=== PATIENT | male | born 1940 | race Caucasian/White ===

== ENCOUNTER → 2023-12-30 11:28 | Outpatient (REF) | payer MEDICARE, OTHER, SELFPAY ==
[2023-12-30 15:49] LABS: Hemoglobin 11.5 g/dL (13.0-18.0)
[2023-12-30 16:03] LABS: Blood Urea Nitrogen 59 mg/dl (9-20); Calcium 9.2 mg/dl (8.4-10.2); Carbon Dioxide 27 mmol/L (22-30); Chloride 102 mmol/L (98-107); Glucose 117 mg/dl (70-99); HDL Cholesterol 42 mg/dl; Iron 72 ug/dl (49-181); LDL Cholesterol, Calculated 71 mg/dl; Phosphorus 4.7 mg/dl (2.5-4.5); Potassium 4.8 mmol/L (3.5-5.1); Sodium 137 mmol/L (135-145); Total Cholesterol 135 mg/dl (50-199); Triglyceride 111 mg/dl (10-149); Very Low Density Lipoprotein 22 mg/dl (0-30); eGFR 27.49
[2023-12-30 16:12] LABS: Percent Saturation 26 % (20-50); Total Iron Binding Capacity 267 ug/dl (261-462)
[2023-12-30 16:42] LABS: Protein/creatinine Ratio 1.8; Urine Protein 162 mg/dl
[2023-12-30 16:52] LABS: Ferritin 41.2 ng/ml (17.9-464.0)
[2023-12-30 17:10] LABS: Microalbumin, Random Urine > 57.0 mg/dl (0.6-1.7)
[2024-01-01 10:57] LABS: Intact PTH 77.9 pg/ml (13.6-85.8)
== END ==
LOC: HWLAB 11:28
PROVIDERS: ATTENDING PHYSICIAN Internal Medicine
DX: E11.9 Type 2 diabetes mellitus without complications (principal); E78.5 Hyperlipidemia, unspecified; N18.4 Chronic kidney disease, stage 4 (severe); D64.9 Anemia, unspecified; I10 Essential (primary) hypertension; R80.1 Persistent proteinuria, unspecified
CPT/HCPCS: 36415; 80048; 80061; 82043; 82570; 82728; 83036; 83540; 83550; 83970; 84100; 84156; 85018

== ENCOUNTER → 2024-02-08 09:42 | Outpatient (REF) | payer MEDICARE, OTHER, SELFPAY ==
[2024-02-08 13:07] LABS: Hemoglobin 10.7 g/dL (13.0-18.0)
[2024-02-08 14:18] LABS: Urine Protein 110 mg/dl
[2024-02-08 14:20] LABS: Blood Urea Nitrogen 48 mg/dl (9-20); Calcium 9.3 mg/dl (8.4-10.2); Carbon Dioxide 19 mmol/L (22-30); Chloride 108 mmol/L (98-107); Glucose 105 mg/dl (70-99); Iron 73 ug/dl (49-181); Phosphorus 4.8 mg/dl (2.5-4.5); Potassium 5.7 mmol/L (3.5-5.1); Sodium 136 mmol/L (135-145); eGFR 27.49
[2024-02-08 14:31] LABS: Percent Saturation 29 % (20-50); Total Iron Binding Capacity 249 ug/dl (261-462)
[2024-02-08 14:34] LABS: Ferritin 56.3 ng/ml (17.9-464.0)
[2024-02-09 11:05] LABS: Intact PTH 49.3 pg/ml (13.6-85.8)
== END ==
LOC: HWLAB 09:42
PROVIDERS: ATTENDING PHYSICIAN Specialist; FAMILY PHYSICIAN Internal Medicine
DX: E78.5 Hyperlipidemia, unspecified (principal); N18.4 Chronic kidney disease, stage 4 (severe); D64.9 Anemia, unspecified; I10 Essential (primary) hypertension; R80.1 Persistent proteinuria, unspecified
CPT/HCPCS: 36415; 80048; 82570; 82728; 83540; 83550; 83970; 84100; 84156; 85018

== ENCOUNTER → 2024-03-17 14:55 | Outpatient (REF) | payer MEDICARE, OTHER, SELFPAY ==
[2024-03-17 15:47] LABS: Blood Urea Nitrogen 53 mg/dl (9-20); Calcium 9.6 mg/dl (8.4-10.2); Carbon Dioxide 23 mmol/L (22-30); Chloride 105 mmol/L (98-107); Glucose 102 mg/dl (70-99); Potassium 4.8 mmol/L (3.5-5.1); Sodium 139 mmol/L (135-145); eGFR 28.99
== END ==
LOC: REG 14:55
PROVIDERS: ATTENDING PHYSICIAN Specialist; FAMILY PHYSICIAN Internal Medicine
DX: E78.5 Hyperlipidemia, unspecified (principal)
CPT/HCPCS: 36415; 80048

== ENCOUNTER → 2024-03-27 09:39 | Outpatient (REF) | payer MEDICARE, OTHER, SELFPAY | LOC: HWRAD 09:39 | PROVIDERS: ATTENDING PHYSICIAN Internal Medicine | DX: M25.552 Pain in left hip (principal); M70.62 Trochanteric bursitis, left hip | CPT/HCPCS: 72110; 73502 ==

== ENCOUNTER → 2024-05-08 07:54 | Outpatient (REF) | payer MEDICARE, OTHER, SELFPAY ==
[2024-05-08 09:39] LABS: Urine Albumin 1+ (Neg - Trace); Urine Bilirubin Negative (Negative); Urine Character Clear (Clear); Urine Color Yellow; Urine Glucose Negative (Negative); Urine Ketone Negative (Negative); Urine Leukocyte Trace (Negative); Urine Nitrite Negative (Negative); Urine Occult Blood Negative (Negative); Urine Specific Gravity 1.015 (<1.030); Urine Urobilinogen Negative (Neg - 1+)
[2024-05-08 09:53] LABS: % Basophils 0.5 % (0-2); % Eosinophils 2.4 % (0-6); % Immature Granulocytes 2.6 % (0-0.5); % Lymphocytes 21.9 % (20.5-51.1); % Monocytes 13.4 % (1.7-9.3); % Neutrophils 59.2 % (42.2-75.2); Absolute Basophils 0.1 10^3/uL (0-0.2); Absolute Eosinophils 0.2 10^3/uL (0-0.7); Absolute Immature Granulocytes 0.2 10^3/uL (0-0.05); Absolute Monocytes 1.2 10^3/uL (0.1-0.6); Absolute Neutrophils 5.5 10^3/uL (1.4-6.5); Hematocrit 32.4 % (39.0-52.0); Hemoglobin 10.8 g/dL (13.0-18.0); Mean Corp Hgb Conc. 33.3 g/dL (33.0-37.0); Mean Corpuscular Hgb 32.4 pg (27.0-31.0); Mean Corpuscular Volume 97.3 fL (80.0-94.0); Mean Platelet Volume 10.8 fL (7.4-10.4); Nucleated Red Blood Cells % 0 % (-); Platelet Count 144 10^3/uL (130-400); Red Blood Cell Count 3.33 10^6/uL (4.70-6.10); Red Cell Dist. Width 13.1 % (11.5-14.5); White Blood Cell Count 9.3 10^3/uL (4.8-10.8)
[2024-05-08 09:58] LABS: ALT (SGPT) 33 U/L (0-50); AST (SGOT) 32 U/L (17-59); Albumin 3.8 g/dl (3.5-5.0); Alkaline Phosphatase 71 U/L (38-126); Blood Urea Nitrogen 50 mg/dl (9-20); Calcium 9.4 mg/dl (8.4-10.2); Carbon Dioxide 23 mmol/L (22-30); Chloride 106 mmol/L (98-107); Glucose 137 mg/dl (70-99); HDL Cholesterol 39 mg/dl; LDL Cholesterol, Calculated 55 mg/dl; Potassium 5.1 mmol/L (3.5-5.1); Sodium 138 mmol/L (135-145); Total Bilirubin 0.4 mg/dl (0.2-1.3); Total Cholesterol 130 mg/dl (50-199); Total Protein 6.1 g/dl (6.3-8.2); Triglyceride 180 mg/dl (10-149); Very Low Density Lipoprotein 36 mg/dl (0-30); eGFR 26.12
[2024-05-08 10:47] LABS: Urine Red Blood Cell None Seen /HPF (0-2); Urine White Cell 0-2 /HPF (0-5)
[2024-05-10 13:47] LABS: Folate > 20.0 ng/ml (2.76-20); Vitamin B12 975 pg/ml (239-931)
== END ==
LOC: HWLAB 07:54
PROVIDERS: ATTENDING PHYSICIAN Internal Medicine; FAMILY PHYSICIAN Nurse Practitioner Family; OTHER PHYSICIAN Internal Medicine Cardiovascular Disease; REFERRING PHYSICIAN Specialist
DX: E11.9 Type 2 diabetes mellitus without complications (principal); E78.5 Hyperlipidemia, unspecified; U07.1 COVID-19; R35.0 Frequency of micturition; R26.89 Other abnormalities of gait and mobility
CPT/HCPCS: 36415; 80053; 80061; 81003; 81015; 82607; 82746; 83036; 85025; 87086

== ENCOUNTER → 2024-08-14 08:24 | Outpatient (REF) | payer MEDICARE, OTHER, SELFPAY ==
[2024-08-14 09:52] LABS: % Basophils 0.4 % (0-2); % Immature Granulocytes 0.3 % (0-0.5); % Lymphocytes 27.3 % (20.5-51.1); % Monocytes 11.4 % (1.7-9.3); % Neutrophils 56.6 % (42.2-75.2); Absolute Eosinophils 0.3 10^3/uL (0-0.7); Absolute Monocytes 0.8 10^3/uL (0.1-0.6); Absolute Neutrophils 4.1 10^3/uL (1.4-6.5); Hematocrit 31.5 % (39.0-52.0); Hemoglobin 10.9 g/dL (13.0-18.0); Mean Corp Hgb Conc. 34.6 g/dL (33.0-37.0); Mean Corpuscular Hgb 32.9 pg (27.0-31.0); Mean Corpuscular Volume 95.2 fL (80.0-94.0); Mean Platelet Volume 11.5 fL (7.4-10.4); Nucleated Red Blood Cells % 0 % (-); Platelet Count 130 10^3/uL (130-400); Red Blood Cell Count 3.31 10^6/uL (4.70-6.10); Red Cell Dist. Width 13.4 % (11.5-14.5); White Blood Cell Count 7.2 10^3/uL (4.8-10.8)
[2024-08-14 10:06] LABS: ALT (SGPT) 23 U/L (0-50); AST (SGOT) 30 U/L (17-59); Albumin 4.2 g/dl (3.5-5.0); Alkaline Phosphatase 93 U/L (38-126); Blood Urea Nitrogen 51 mg/dl (9-20); Calcium 9.3 mg/dl (8.4-10.2); Carbon Dioxide 21 mmol/L (22-30); Chloride 105 mmol/L (98-107); Glucose 134 mg/dl (70-99); HDL Cholesterol 36 mg/dl; LDL Cholesterol, Calculated 78 mg/dl; Potassium 5.3 mmol/L (3.5-5.1); Sodium 140 mmol/L (135-145); Total Bilirubin 0.5 mg/dl (0.2-1.3); Total Cholesterol 171 mg/dl (50-199); Total Protein 6.5 g/dl (6.3-8.2); Triglyceride 288 mg/dl (10-149); Very Low Density Lipoprotein 57 mg/dl (0-30); eGFR 23.73
[2024-08-14 10:24] LABS: Glycohemoglobin (HgbA1c) 5.8 % (4.0-5.6)
== END ==
LOC: HWLAB 08:24
PROVIDERS: ATTENDING PHYSICIAN Specialist; FAMILY PHYSICIAN Internal Medicine
DX: E78.5 Hyperlipidemia, unspecified (principal); E11.9 Type 2 diabetes mellitus without complications; D69.6 Thrombocytopenia, unspecified
CPT/HCPCS: 36415; 80053; 80061; 83036; 85025

== ENCOUNTER → 2024-08-23 09:06 | Outpatient (REF) | payer MEDICARE, OTHER, SELFPAY ==
[2024-08-23 13:31] LABS: TSH Reflex To Free T4 1.97 uIU/ml (0.47-4.68)
== END ==
LOC: HWLAB 09:06
PROVIDERS: ATTENDING PHYSICIAN Nurse Practitioner Family
DX: K59.00 Constipation, unspecified (principal)
CPT/HCPCS: 36415; 84443

== ENCOUNTER 2024-08-24 12:55 | Emergency (ER) | payer MEDICARE, OTHER, SELFPAY ==
--- NOTE | 2024-08-24 13:04 | ED.GENMED ---
ED Provider Triage
<JESSICA Amor - Last Filed: 08/24/24 13:19>
-
Patient seen by provider in Triage?: Seen in Triage
Attestation: A medical screening examination has been initiated by a qualified medical provider. Based on the assessment performed at this time, it has been determined that an emergent medical condition may exist and the patient has been informed
that further medical evaluation and possible additional diagnostic testing may be needed.
HPI:
83 yr old male presents with abdominal pain x3 wks . PT thought he was constipated but has since moved his bowels (last BM today ) and still has abdominal pain . Pt reports he feels discomfort in abdomen and chest. No shortness of breath. no
dysuria , no hematuria, no back pain . Pt denies any nausea /vomiting. Normal appetite.
GENERAL: Alert , in no apparent distress
EYE: No visual abnormalities.
NECK: Trachea midline
ENT: No visible abnormalities.
LUNGS: No acute respiratory distress
NEUROLOGICAL: Alert and oriented
SKIN: Skin intact. No visible changes.
MUSCULOSKELETAL: Moving extremities normally
PSYCH: Normal and appropriate interaction.
This is a medical evaluation conducted in person to initiate diagnostic evaluation and provide initial therapeutics. Please see further documentation by the treating clinician.
History of Present Illness
<JESSICA Amor - Last Filed: 08/24/24 13:19>
General
Chief Complaint: Chest Pain
Time Seen by Provider: 08/24/24 13:53
<Nava Garcia MD - Last Filed: 08/24/24 16:21>
General
Source: patient
Exam Limitations: none
Nursing documentation reviewed up to this point in time: agreed with
History of Present Illness
History of Present Illness:
The patient is a very pleasant 83-year-old man who comes in with complaints of 2 weeks of upper abdominal pain radiating to into his central and lower abdomen. Patient reports that it feels like a burning sensation that comes and goes throughout
the day. He is not able to correlate it with any specific things such as eating or exertion. Patient denies cough and shortness of breath. Patient reports that he thought it may be due to constipation but states that he had a very good bowel
movement yesterday and still had some discomfort earlier today. Currently patient denies all discomfort and feels well. He denies nausea and vomiting.
Past History
<JESSICA Amor - Last Filed: 08/24/24 13:19>
Past History
ED Past Medical History: CAD, HTN, Hypercholesterolemia, NIDDM and Other (Hiatel hernia, Speep apnea)
ED Past Surgical History: Cardiac (Stents X2) and Urological (Left nephrectomy)
Social History
Tobacco: Non-smoker
Alcohol: None
Drug: None
Personal:
Living: with family
Employment: Retired
Family History
Family History: Hypertension
Review of Systems
<Nava Garcia MD - Last Filed: 08/24/24 16:21>
Review of Systems
Allergies reviewed?: Yes
All Other Systems: ROS reviewed and negative except as documented in HPI and ROS
Constitutional: Reports no symptoms
EENT: Reports no symptoms
Respiratory: Reports no symptoms
ABD/GI: Reports abdominal pain and constipated
: Reports no symptoms
Musculoskeletal: Reports no symptoms
Skin: Reports no symptoms
Neurological: Reports no symptoms
Endocrine: Reports no symptoms
Hematologic/Lymphatic: Reports no symptoms
Psychiatric: Reports no symptoms
Phy Exam
<Nava Garcia MD - Last Filed: 08/24/24 16:21>
Physical Exam
Physical Exam:
Physical Exam
General: no apparent distress, not acutely ill. Very well-appearing, conversational and smiling
Neck: supple. no meningeal signs. normal psoterior pharynx
Heart: s1/s2 regular rate and rhythm,
Lungs: no acute respiratory distress. clear bilaterally
Abdomen: normal bowel sounds. not tender. no CVAT. Soft and nontender throughout. No pulsatile mass
Neuro: alert and oriented. no focal neurological deficits
Skin: no rash
Psychiatric: well kept. interactive and cooperative
Extremities: no edema. no calf tenderness. negative homans. good distal pulses
Scores
<Nava Garcia MD - Last Filed: 08/24/24 16:21>
Heart Score for Chest Pain Patients
STEMI patient?: Not applicable
Course
<JESSICA Amor - Last Filed: 08/24/24 13:19>
Orders/Labs/Results
Orders:
Orders
08/24/24 12:56
Electrocardiogram (*1) Urgent
Reason for Study: Chest Pain
EKG- Treatment ONCE
08/24/24 13:18
Complete Blood Count/With Diff Urgent
Comprehensive Metabolic Panel Urgent
Lipase Urgent
Troponin I Urgent
Urinalysis Reflex To Culture Urgent
Date Specimen was Collected: 08/24/24
Time Specimen was Collected: 13:09
Urine Microscopic Reflex Cult Urgent
08/24/24 14:23
CT Abd/pel Without Iv Or Oral Urgent
Comment:
Reason For Exam: epig and diffuse ab pain
Abnormal Lab Results
08/24/24
13:18
RBC 3.63 L 10^6/uL
(4.70-6.10)
Hgb 11.5 L g/dL
(13.0-18.0)
Hct 32.8 L %
(39.0-52.0)
MCH 31.7 H pg
(27.0-31.0)
MPV 11.2 H fL
(7.4-10.4)
Absolute Monos (auto) 0.8 H 10^3/uL
(0.1-0.6)
Lymphocytes % 16.1 L %
(20.5-51.1)
Monocytes % 10.6 H %
(1.7-9.3)
BUN 46 H mg/dl
(9-20)
Creatinine 2.5 H mg/dL
(0.7-1.3)
Glucose 201 H mg/dl
(70-99)
Urine Bacteria (Reflex) Few A
(Negative)
Urine Albumin (Reflex) 1+ A
(Neg - Trace)
08/24/24 13:18
08/24/24 13:18
Vital Signs
Initial and Last Documented VS:
Initial Vital Signs
BP
155/69
08/24/24 13:32
Last Documented Vital Signs
Temp Pulse Resp BP Pulse Ox
97.9 F 65 17 150/72 93
08/24/24 13:34 08/24/24 14:54 08/24/24 14:15 08/24/24 14:00 08/24/24 14:15
<Nava Garcia MD - Last Filed: 08/24/24 16:21>
Orders/Labs/Results
Orders:
Orders
08/24/24 12:56
Electrocardiogram (*1) Urgent
Reason for Study: Chest Pain
EKG- Treatment ONCE
08/24/24 13:18
Complete Blood Count/With Diff Urgent
Comprehensive Metabolic Panel Urgent
Lipase Urgent
Troponin I Urgent
Urinalysis Reflex To Culture Urgent
Date Specimen was Collected: 08/24/24
Time Specimen was Collected: 13:09
Urine Microscopic Reflex Cult Urgent
08/24/24 14:23
CT Abd/pel Without Iv Or Oral Urgent
Comment:
Reason For Exam: epig and diffuse ab pain
Abnormal Lab Results
08/24/24
13:18
RBC 3.63 L 10^6/uL
(4.70-6.10)
Hgb 11.5 L g/dL
(13.0-18.0)
Hct 32.8 L %
(39.0-52.0)
MCH 31.7 H pg
(27.0-31.0)
MPV 11.2 H fL
(7.4-10.4)
Absolute Monos (auto) 0.8 H 10^3/uL
(0.1-0.6)
Lymphocytes % 16.1 L %
(20.5-51.1)
Monocytes % 10.6 H %
(1.7-9.3)
BUN 46 H mg/dl
(9-20)
Creatinine 2.5 H mg/dL
(0.7-1.3)
Glucose 201 H mg/dl
(70-99)
Urine Bacteria (Reflex) Few A
(Negative)
Urine Albumin (Reflex) 1+ A
(Neg - Trace)
08/24/24 13:18
08/24/24 13:18
Vital Signs
Initial and Last Documented VS:
Initial Vital Signs
BP
155/69
08/24/24 13:32
Last Documented Vital Signs
Temp Pulse Resp BP Pulse Ox
97.9 F 65 17 150/72 93
08/24/24 13:34 08/24/24 14:54 08/24/24 14:15 08/24/24 14:00 08/24/24 14:15
<Nava Garcia MD - Last Filed: 08/24/24 16:21>
MDM/Problems Addressed
Differential Diagnosis Includes:
Acute diverticulitis, acute gastritis, small bowel obstruction, acute coronary syndrome, acute cholecystitis
MDM/Problems Addressed:
Patient presents with acute epigastric and diffuse abdominal pain
Chronic conditions affecting care: HTN
Acute Exacerbation and/or Progression of Chronic Illness: HTN
<Nava Garcia MD - Last Filed: 08/24/24 16:21>
*Radiology
Radiology exam reviewed: radiology read reviewed
*Pulse Oximetry
Patient hypoxic: no
*EKG
Interpreted by ED Provider?: Yes
Interpretation: abnormal
Comparison EKG: no changes
Rate: normal
Rhythm: sinus
[place]: left axis deviation
Interval: normal interval
QRS Pattern: normal QRS
Ischemia: no ischemia
*Tape Stringer Interpretation
Rate: normal
Interpretation: normal
Rhythm: sinus
*Critical Care Note
Total Time (30-74mins, 75-104mins- exclusive of procedures): Not Applicable
Data Reviewed
Review of Other/Old Records Reveals: Radiology Studies (CAT scan of abdomen and pelvis reviewed from 2019 which shows sign of diverticulosis)
Source: patient and spouse
<Nava Garcia MD - Last Filed: 08/24/24 16:21>
Update Note
Update Note:
Patient remains pain-free for hours in the emergency department. There is no sign of acute infection or surgical issue
ED Attending Note
<JESSICA Amor - Last Filed: 08/24/24 13:19>
-
Portions of this chart may have been created with voice recognition software.� Occasional wrong word or��sound alike� substitutions may have occurred due to the inherent limitations of voice recognition software.
Discharge Plan
Departure
Patient Disposition: Home (Routine Discharge)
Date of Disposition: 08/24/24
Time of Disposition: 16:13
Patient with high blood pressure during this ER visit?: Yes
Condition: Good
Covid-19: Not Applicable
Discharge Problem:
Acute upper abdominal pain
Instructions: Acid Reflux and GERD in Adults (DC), BLOOD PRESSURE
Prescriptions:
New
sucralfate [Carafate] 100 mg/mL suspension
1 g PO ACHS 7 Days Qty: 280 0RF
No Action
atenolol 25 MG tablet
25 mg PO DAILY
aspirin [Saida Chewable Aspirin] 81 MG tablet,chewable
81 mg PO DAILY
alfuzosin 10 MG tablet extended release 24 hr
10 mg PO DAILY
Glipizide
omeprazole magnesium [Prilosec OTC] 20 MG tablet,delayed release (DR/EC)
20 mg PO DAILY Qty: 20 0RF
prednisone 20 mg tablet
40 mg PO DAILY 5 Days Qty: 10 0RF
Referrals:
Mark Antoine CRNP [Family Provider] -
Activity Restrictions/Additional Instructions:
Follow-up with your primary care doctor within 1 week
Interventions
Interventions:
*Risk Screen - Suicide Last Done: 08/24/24 13:04
*General Assessment Last Done: 08/24/24 13:04
ED- Fall Risk Assessment Last Done: 08/24/24 13:57
*ED COVID-19 Vaccine History Last Done: 08/24/24 13:04
ED- Cardiac Assessment Last Done: 08/24/24 13:39
Discharge Date and Time
Print Language: JAPANESE
[2024-08-24 13:27] LABS: % Basophils 0.5 % (0-2); % Eosinophils 3.1 % (0-6); % Immature Granulocytes 0.4 % (0-0.5); % Lymphocytes 16.1 % (20.5-51.1); % Monocytes 10.6 % (1.7-9.3); % Neutrophils 69.3 % (42.2-75.2); Absolute Eosinophils 0.2 10^3/uL (0-0.7); Absolute Lymphocytes 1.2 10^3/uL (1.2-3.4); Absolute Monocytes 0.8 10^3/uL (0.1-0.6); Absolute Neutrophils 5.2 10^3/uL (1.4-6.5); Hematocrit 32.8 % (39.0-52.0); Hemoglobin 11.5 g/dL (13.0-18.0); Mean Corp Hgb Conc. 35.1 g/dL (33.0-37.0); Mean Corpuscular Hgb 31.7 pg (27.0-31.0); Mean Corpuscular Volume 90.4 fL (80.0-94.0); Mean Platelet Volume 11.2 fL (7.4-10.4); Nucleated Red Blood Cells % 0 % (-); Platelet Count 141 10^3/uL (130-400); Red Blood Cell Count 3.63 10^6/uL (4.70-6.10); Red Cell Dist. Width 13.4 % (11.5-14.5); White Blood Cell Count 7.5 10^3/uL (4.8-10.8)
[2024-08-24 13:28] LABS: Urine Albumin 1+ (Neg - Trace); Urine Bilirubin Negative (Negative); Urine Character Clear (Clear); Urine Color Straw; Urine Glucose Negative (Negative); Urine Ketone Negative (Negative); Urine Leukocyte Negative (Negative); Urine Nitrite Negative (Negative); Urine Occult Blood Negative (Negative); Urine Specific Gravity 1.015 (<1.030); Urine Urobilinogen Negative (Neg - 1+)
[2024-08-24 13:32] VITALS: BP 155/69
[2024-08-24 13:49] LABS: Urine Bacteria Few (Negative); Urine Red Blood Cell 0-2 /HPF (0-2); Urine Squamous Cell 0-2 /LPF (Few); Urine White Cell 0-2 /HPF (0-5)
[2024-08-24 13:53] LABS: ALT (SGPT) 24 U/L (0-50); AST (SGOT) 31 U/L (17-59); Albumin 4.5 g/dl (3.5-5.0); Alkaline Phosphatase 88 U/L (38-126); Blood Urea Nitrogen 46 mg/dl (9-20); Calcium 9.4 mg/dl (8.4-10.2); Carbon Dioxide 23 mmol/L (22-30); Chloride 103 mmol/L (98-107); Glucose 201 mg/dl (70-99); Lipase 183 U/L (23-300); Potassium 4.8 mmol/L (3.5-5.1); Sodium 138 mmol/L (135-145); Total Bilirubin 0.6 mg/dl (0.2-1.3); Total Protein 6.8 g/dl (6.3-8.2); Troponin I < 0.012 ng/ml; eGFR 24.87
--- NOTE | 2024-08-24 13:53 | ED.GENMED ---
History of Present Illness
General
Chief Complaint: Chest Pain
Source: patient and spouse
Exam Limitations: none
Time Seen by Provider: 08/24/24 13:53
Nursing documentation reviewed up to this point in time: agreed with
History of Present Illness
History of Present Illness:
The patient is an 83
Past History
Past History
ED Past Medical History: CAD, HTN, Hypercholesterolemia, NIDDM and Other (Hiatel hernia, Speep apnea)
ED Past Surgical History: Cardiac (Stents X2) and Urological (Left nephrectomy)
Social History
Tobacco: Non-smoker
Alcohol: None
Drug: None
Personal:
Living: with family
Employment: Retired
Family History
Family History: Hypertension
Course
Orders/Labs/Results
Orders:
Orders
08/24/24 12:56
Electrocardiogram (*1) Urgent
Reason for Study: Chest Pain
EKG- Treatment ONCE
08/24/24 13:18
Complete Blood Count/With Diff Urgent
Comprehensive Metabolic Panel Urgent
Lipase Urgent
Troponin I Urgent
Urinalysis Reflex To Culture Urgent
Date Specimen was Collected: 08/24/24
Time Specimen was Collected: 13:09
Urine Microscopic Reflex Cult Urgent
Abnormal Lab Results
08/24/24
13:18
RBC 3.63 L 10^6/uL
(4.70-6.10)
Hgb 11.5 L g/dL
(13.0-18.0)
Hct 32.8 L %
(39.0-52.0)
MCH 31.7 H pg
(27.0-31.0)
MPV 11.2 H fL
(7.4-10.4)
Absolute Monos (auto) 0.8 H 10^3/uL
(0.1-0.6)
Lymphocytes % 16.1 L %
(20.5-51.1)
Monocytes % 10.6 H %
(1.7-9.3)
BUN 46 H mg/dl
(9-20)
Creatinine 2.5 H mg/dL
(0.7-1.3)
Glucose 201 H mg/dl
(70-99)
Urine Bacteria (Reflex) Few A
(Negative)
Urine Albumin (Reflex) 1+ A
(Neg - Trace)
08/24/24 13:18
08/24/24 13:18
Vital Signs
Initial and Last Documented VS:
Initial Vital Signs
BP
155/69
08/24/24 13:32
Last Documented Vital Signs
Temp Pulse Resp BP Pulse Ox
97.9 F 64 17 150/72 93
08/24/24 13:34 08/24/24 14:15 08/24/24 14:15 08/24/24 14:00 08/24/24 14:15
*Pulse Oximetry
Patient hypoxic: no
*EKG
Interpreted by ED Provider?: Yes
Interpretation: abnormal
Comparison EKG: changes noted
Rate: normal
Rhythm: sinus
[place]: left axis deviation
Interval: normal interval
QRS Pattern: normal QRS
Ischemia: no ischemia
ED Attending Note
-
Portions of this chart may have been created with voice recognition software.� Occasional wrong word or��sound alike� substitutions may have occurred due to the inherent limitations of voice recognition software.
Discharge Plan
Departure
Prescriptions:
No Action
atenolol 25 MG tablet
25 mg PO DAILY
aspirin [Saida Chewable Aspirin] 81 MG tablet,chewable
81 mg PO DAILY
alfuzosin 10 MG tablet extended release 24 hr
10 mg PO DAILY
Glipizide
omeprazole magnesium [Prilosec OTC] 20 MG tablet,delayed release (DR/EC)
20 mg PO DAILY Qty: 20 0RF
prednisone 20 mg tablet
40 mg PO DAILY 5 Days Qty: 10 0RF
Referrals:
Mark Antoine CRNP [Family Provider] -
Interventions
Interventions:
*Risk Screen - Suicide Last Done: 08/24/24 13:04
*General Assessment Last Done: 08/24/24 13:04
ED- Fall Risk Assessment Last Done: 08/24/24 13:57
*ED COVID-19 Vaccine History Last Done: 08/24/24 13:04
ED- Cardiac Assessment Last Done: 08/24/24 13:39
Discharge Date and Time
Print Language: CHILEAN
[2024-08-24 14:00] VITALS: BP 150/72
[2024-08-24 16:23] VITALS: BP 155/72
== END 2024-08-24 16:39 | disposition home or self-care (01) ==
LOC: EMR 12:55
PROVIDERS: Nurse Practitioner; EMERGENCY PHYSICIAN Emergency Medicine; FAMILY PHYSICIAN Nurse Practitioner Family
DX: R10.10 Upper abdominal pain, unspecified (principal); I25.10 Atherosclerotic heart disease of native coronary artery without angina pectoris; I10 Essential (primary) hypertension; E78.00 Pure hypercholesterolemia, unspecified; E11.9 Type 2 diabetes mellitus without complications; Z82.49 Family history of ischemic heart disease and other diseases of the circulatory system; Z90.5 Acquired absence of kidney; Z95.5 Presence of coronary angioplasty implant and graft
CPT/HCPCS: 99284; 74176; 80053; 81003; 81015; 83690; 84484; 85025; 93005

== ENCOUNTER → 2024-09-20 12:41 | Outpatient (REF) | payer MEDICARE, OTHER, SELFPAY ==
[2024-09-20 16:08] LABS: Blood Urea Nitrogen 65 mg/dl (9-20); Calcium 9.2 mg/dl (8.4-10.2); Carbon Dioxide 23 mmol/L (22-30); Chloride 105 mmol/L (98-107); Glucose 123 mg/dl (70-99); Phosphorus 4.5 mg/dl (2.5-4.5); Potassium 4.9 mmol/L (3.5-5.1); Sodium 140 mmol/L (135-145); eGFR 23.73
== END ==
LOC: HWLAB 12:41
PROVIDERS: ATTENDING PHYSICIAN Specialist; FAMILY PHYSICIAN Internal Medicine
DX: N18.4 Chronic kidney disease, stage 4 (severe) (principal)
CPT/HCPCS: 36415; 80048; 84100

== ENCOUNTER → 2024-11-10 12:10 | Outpatient (REF) | payer MEDICARE, OTHER, SELFPAY ==
[2024-11-10 17:09] LABS: Blood Urea Nitrogen 50 mg/dl (9-20); Calcium 9.3 mg/dl (8.4-10.2); Carbon Dioxide 22 mmol/L (22-30); Chloride 105 mmol/L (98-107); Glucose 125 mg/dl (70-99); Phosphorus 4.3 mg/dl (2.5-4.5); Potassium 5.2 mmol/L (3.5-5.1); Sodium 138 mmol/L (135-145); eGFR 26.12
== END ==
LOC: HWLAB 12:10
PROVIDERS: ATTENDING PHYSICIAN Specialist; FAMILY PHYSICIAN Internal Medicine
DX: N18.4 Chronic kidney disease, stage 4 (severe) (principal)
CPT/HCPCS: 36415; 80048; 84100

== ENCOUNTER → 2024-11-30 11:35 | Outpatient (REF) | payer MEDICARE, OTHER, SELFPAY | LOC: HWRAD 11:35 | PROVIDERS: ATTENDING PHYSICIAN Internal Medicine | DX: S80.11XA Contusion of right lower leg, initial encounter (principal) | CPT/HCPCS: 73590 ==

== ENCOUNTER → 2024-12-21 09:43 | Outpatient (REF) | payer MEDICARE, OTHER, SELFPAY ==
[2024-12-21 12:57] LABS: % Basophils 0.5 % (0-2); % Eosinophils 2.9 % (0-6); % Immature Granulocytes 0.9 % (0-0.5); % Lymphocytes 16.9 % (20.5-51.1); % Monocytes 9.4 % (1.7-9.3); % Neutrophils 69.4 % (42.2-75.2); Absolute Basophils 0.1 10^3/uL (0-0.2); Absolute Eosinophils 0.3 10^3/uL (0-0.7); Absolute Immature Granulocytes 0.1 10^3/uL (0-0.05); Absolute Lymphocytes 1.9 10^3/uL (1.2-3.4); Absolute Monocytes 1.1 10^3/uL (0.1-0.6); Hemoglobin 11.5 g/dL (13.0-18.0); Mean Corp Hgb Conc. 32.9 g/dL (33.0-37.0); Mean Corpuscular Hgb 31.3 pg (27.0-31.0); Mean Corpuscular Volume 95.4 fL (80.0-94.0); Mean Platelet Volume 11.9 fL (7.4-10.4); Nucleated Red Blood Cells % 0 % (-); Platelet Count 157 10^3/uL (130-400); Red Blood Cell Count 3.67 10^6/uL (4.70-6.10); Red Cell Dist. Width 13.8 % (11.5-14.5); White Blood Cell Count 11.5 10^3/uL (4.8-10.8)
[2024-12-21 13:19] LABS: ALT (SGPT) 22 U/L (0-50); AST (SGOT) 25 U/L (17-59); Albumin 4.7 g/dl (3.5-5.0); Alkaline Phosphatase 83 U/L (38-126); Blood Urea Nitrogen 58 mg/dl (9-20); Calcium 9.5 mg/dl (8.4-10.2); Carbon Dioxide 20 mmol/L (22-30); Chloride 107 mmol/L (98-107); Glucose 131 mg/dl (70-99); HDL Cholesterol 40 mg/dl; Iron 73 ug/dl (49-181); LDL Cholesterol, Calculated 72 mg/dl; Phosphorus 4.8 mg/dl (2.5-4.5); Potassium 5.6 mmol/L (3.5-5.1); Sodium 139 mmol/L (135-145); Total Bilirubin 0.7 mg/dl (0.2-1.3); Total Cholesterol 159 mg/dl (50-199); Total Protein 7.1 g/dl (6.3-8.2); Triglyceride 235 mg/dl (10-149); Very Low Density Lipoprotein 47 mg/dl (0-30); eGFR 20.68
[2024-12-21 13:25] LABS: Protein/creatinine Ratio 1.9; Urine Protein 185 mg/dl
[2024-12-21 13:30] LABS: Percent Saturation 28 % (20-50); Total Iron Binding Capacity 258 ug/dl (261-462)
[2024-12-21 13:40] LABS: Ferritin 58.1 ng/ml (17.9-464.0)
[2024-12-21 17:24] LABS: Microalbumin, Random Urine > 57.0 mg/dl (0.6-1.7)
[2024-12-23 09:43] LABS: Intact PTH 41.2 pg/ml (13.6-85.8)
== END ==
LOC: HWLAB 09:43
PROVIDERS: ATTENDING PHYSICIAN Specialist; FAMILY PHYSICIAN Internal Medicine
DX: E11.9 Type 2 diabetes mellitus without complications (principal); D69.6 Thrombocytopenia, unspecified; D63.8 Anemia in other chronic diseases classified elsewhere; E78.5 Hyperlipidemia, unspecified; N18.4 Chronic kidney disease, stage 4 (severe); D64.9 Anemia, unspecified; I10 Essential (primary) hypertension
CPT/HCPCS: 36415; 80053; 80061; 82043; 82570; 82728; 83036; 83540; 83550; 83970; 84100; 84156; 85025

== ENCOUNTER → 2024-12-22 11:05 | Outpatient (REF) | payer MEDICARE, OTHER, SELFPAY | LOC: HWRAD 11:05 | PROVIDERS: ATTENDING PHYSICIAN Internal Medicine | DX: R93.89 Abnormal findings on diagnostic imaging of other specified body structures (principal) | CPT/HCPCS: 73590 ==

== ENCOUNTER → 2025-01-26 10:59 | Outpatient (REF) | payer MEDICARE, OTHER, SELFPAY ==
[2025-01-26 15:16] LABS: Blood Urea Nitrogen 58 mg/dl (9-20); Calcium 9.4 mg/dl (8.4-10.2); Carbon Dioxide 22 mmol/L (22-30); Chloride 103 mmol/L (98-107); Glucose 105 mg/dl (70-99); Potassium 5.3 mmol/L (3.5-5.1); Sodium 136 mmol/L (135-145); eGFR 27.32
== END ==
LOC: HWLAB 10:59
PROVIDERS: ATTENDING PHYSICIAN Specialist; FAMILY PHYSICIAN Internal Medicine
DX: N18.4 Chronic kidney disease, stage 4 (severe) (principal)
CPT/HCPCS: 36415; 80048

== ENCOUNTER → 2025-03-07 08:11 | Outpatient (REF) | payer MEDICARE, OTHER, SELFPAY ==
[2025-03-07 10:38] LABS: Blood Urea Nitrogen 63 mg/dl (9-20); Calcium 8.9 mg/dl (8.4-10.2); Carbon Dioxide 22 mmol/L (22-30); Chloride 105 mmol/L (98-107); Glucose 117 mg/dl (70-99); Potassium 4.7 mmol/L (3.5-5.1); Sodium 140 mmol/L (135-145); Uric Acid 4.9 mg/dl (3.5-8.5); eGFR 21.57
== END ==
LOC: HWLAB 08:11
PROVIDERS: ATTENDING PHYSICIAN Specialist; FAMILY PHYSICIAN Internal Medicine
DX: N18.4 Chronic kidney disease, stage 4 (severe) (principal); E78.5 Hyperlipidemia, unspecified; I10 Essential (primary) hypertension; M25.572 Pain in left ankle and joints of left foot
CPT/HCPCS: 36415; 80048; 84550

== ENCOUNTER 2025-03-14 20:45 | Emergency (ER) | payer MEDICARE, OTHER, SELFPAY ==
[2025-03-14 20:46] VITALS: BP 161/74
--- NOTE | 2025-03-14 22:17 | ED.SKININJ ---
HPI-Injury
General
Chief Complaint: Skin Problem
Source: patient
Exam Limitations: none
Time Seen by Provider: 03/14/25 21:47
History of Present Illness-Injury
Is this injury a work related problem?: No
Is pt an associate of [facility]/[place]?: No
Initial Injury comments:
Patient to ED for bleeding from right forearm wound. He states he cut his arm on a ladder on Wednesday. Sustained a superficial skin tear to right ant, forearm. He states wound continues to ooze. Brought to ED by spouse for eval.
Past History
Past History
ED Past Medical History: CAD, HTN, Hypercholesterolemia, NIDDM and Other (Hiatel hernia, Speep apnea)
ED Past Surgical History: Cardiac (Stents X2) and Urological (Left nephrectomy)
Social History
Tobacco: Non-smoker
Alcohol: None
Drug: None
Personal:
Living: with family
Employment: Retired
Family History
Family History: Hypertension
Review of Systems
Review of Systems
Allergies reviewed?: Yes
All Other Systems: ROS reviewed and negative except as documented in HPI and ROS
Constitutional: Reports no symptoms
Musculoskeletal: Reports no symptoms
Skin: Reports other (superficial skin tear right forearm)
Neurological: Reports no symptoms
Psychiatric: Reports no symptoms
Phy Exam
General Physical Exam
General Presentation: well appearing and no apparent distress
General age: appears stated age
General Skin: warm and dry
General Habitus: normal
Musculoskeletal Exam
Musculoskeletal Exam: full ROM and neuro vasc intact
Skin Exam
Skin Exam: normal color, warm/dry, no rash and other (superficial skin tear to right dorsal forearm. No active bleeding. Gelfoam and dressing applied. Mika wrap applied for light pressure.)
Psychiatric Exam
Psychiatric Exam: normal mood/affect
Course
Vital Signs
Initial and Last Documented VS:
Initial Vital Signs
Temp Pulse Resp BP Pulse Ox
98.6 F 76 16 161/74 99
03/14/25 20:46 03/14/25 20:46 03/14/25 20:46 03/14/25 20:46 03/14/25 20:46
Last Documented Vital Signs
Temp Pulse Resp BP Pulse Ox
98.6 F 76 16 161/74 99
03/14/25 20:46 03/14/25 20:46 03/14/25 20:46 03/14/25 20:46 03/14/25 20:46
*Critical Care Note
Total Time (30-74mins, 75-104mins- exclusive of procedures): Not Applicable
Update Note
Update Note:
Patient to ED for oozing from right dorsal forearm skin tear. Gelfoam and light pressure dressing applied. No active bleeding He is discharged home and will follow up with PCP. Given instructions on s/s to return to ED and he is agreeable to plan.
ED Attending Note
-
Portions of this chart may have been created with voice recognition software.� Occasional wrong word or��sound alike� substitutions may have occurred due to the inherent limitations of voice recognition software.
Discharge Plan
Departure
Patient Disposition: Home (Routine Discharge)
Date of Disposition: 03/14/25
Time of Disposition: 22:15
Patient with high blood pressure during this ER visit?: No
Condition: Good
Covid-19: Not Applicable
Discharge Problem:
Skin tear
Instructions: Taking care of cuts, scrapes, and puncture wounds
Prescriptions:
No Action
atenolol 25 MG tablet
25 mg PO DAILY
aspirin [Saida Chewable Aspirin] 81 MG tablet,chewable
81 mg PO DAILY
alfuzosin 10 MG tablet extended release 24 hr
10 mg PO DAILY
Glipizide
omeprazole magnesium [Prilosec OTC] 20 MG tablet,delayed release (DR/EC)
20 mg PO DAILY Qty: 20 0RF
prednisone 20 mg tablet
40 mg PO DAILY 5 Days Qty: 10 0RF
sucralfate [Carafate] 100 mg/mL suspension
1 g PO ACHS 7 Days Qty: 280 0RF
Referrals:
UNKNOWN - PT DOES,NOT KNOW [Unknown Provider] -
Activity Restrictions/Additional Instructions:
Do not remove the gelfoam covering your wound. It will 'gel' to your skin and then dissolve on own. Cover wound with a gauze pad. FOllow up with your family doctor.
Interventions
Interventions:
*Risk Screen - Suicide Last Done: 03/14/25 20:46
*General Assessment Last Done: 03/14/25 20:46
*Neglect/Abuse Screening Last Done: 03/14/25 20:46
*ED- Fall Risk Assessment Last Done: 03/14/25 22:43
*ED COVID-19 Vaccine History Last Done: 03/14/25 20:46
*Nursing Disposition Last Done: 03/14/25 22:43
ED-Skin Assessment Last Done: 03/14/25 22:43
Discharge Date and Time
Discharge Date/Time: 03/14/25 22:44
Print Language: GUYANESE
== END 2025-03-14 22:44 | disposition home or self-care (01) ==
LOC: EMR 20:45
PROVIDERS: EMERGENCY PHYSICIAN Emergency Medicine; FAMILY PHYSICIAN Internal Medicine
DX: S51.811A Laceration without foreign body of right forearm, initial encounter (principal); W45.8XXA Other foreign body or object entering through skin, initial encounter; I25.10 Atherosclerotic heart disease of native coronary artery without angina pectoris; E11.9 Type 2 diabetes mellitus without complications; E78.00 Pure hypercholesterolemia, unspecified; I10 Essential (primary) hypertension; Z82.49 Family history of ischemic heart disease and other diseases of the circulatory system; Z90.5 Acquired absence of kidney; Z95.5 Presence of coronary angioplasty implant and graft
CPT/HCPCS: 99284

== ENCOUNTER → 2025-04-11 08:29 | Outpatient (REF) | payer MEDICARE, OTHER, SELFPAY ==
[2025-04-11 13:00] LABS: Hemoglobin 10.1 g/dL (13.0-18.0)
[2025-04-11 13:34] LABS: Urine Protein 111 mg/dl
[2025-04-11 13:43] LABS: ALT (SGPT) 24 U/L (0-50); AST (SGOT) 28 U/L (17-59); Albumin 4.2 g/dl (3.5-5.0); Alkaline Phosphatase 67 U/L (38-126); Blood Urea Nitrogen 60 mg/dl (9-20); Carbon Dioxide 21 mmol/L (22-30); Chloride 111 mmol/L (98-107); Glucose 111 mg/dl (70-99); HDL Cholesterol 39 mg/dl; Iron 68 ug/dl (49-181); LDL Cholesterol, Calculated 73 mg/dl; Phosphorus 5.7 mg/dl (2.5-4.5); Potassium 5.3 mmol/L (3.5-5.1); Sodium 142 mmol/L (135-145); Total Bilirubin 0.6 mg/dl (0.2-1.3); Total Cholesterol 155 mg/dl (50-199); Total Protein 6.6 g/dl (6.3-8.2); Triglyceride 216 mg/dl (10-149); Very Low Density Lipoprotein 43 mg/dl (0-30); eGFR 19.09
[2025-04-11 13:53] LABS: Percent Saturation 26 % (20-50); Total Iron Binding Capacity 253 ug/dl (261-462)
== END ==
LOC: HWLAB 08:29
PROVIDERS: ATTENDING PHYSICIAN Internal Medicine Cardiovascular Disease; FAMILY PHYSICIAN Internal Medicine; REFERRING PHYSICIAN Specialist
DX: E78.5 Hyperlipidemia, unspecified (principal); N18.4 Chronic kidney disease, stage 4 (severe); I25.10 Atherosclerotic heart disease of native coronary artery without angina pectoris; I10 Essential (primary) hypertension; I34.0 Nonrheumatic mitral (valve) insufficiency; I35.1 Nonrheumatic aortic (valve) insufficiency; I07.1 Rheumatic tricuspid insufficiency
CPT/HCPCS: 36415; 80053; 80061; 82570; 83540; 83550; 83970; 84100; 84156; 85018

== ENCOUNTER → 2025-04-24 11:08 | Outpatient (REF) | payer MEDICARE, OTHER, SELFPAY ==
[2025-04-27 02:34] LABS: Erythropoietin (EPO) 10 mU/mL (4-27)
== END ==
LOC: HWLAB 11:08
PROVIDERS: ATTENDING PHYSICIAN Specialist; FAMILY PHYSICIAN Internal Medicine
DX: N18.4 Chronic kidney disease, stage 4 (severe) (principal); D64.9 Anemia, unspecified
CPT/HCPCS: 36415; 82668

== ENCOUNTER → 2025-05-02 12:04 | Outpatient (REF) | payer MEDICARE, OTHER, SELFPAY ==
[2025-05-02 16:03] LABS: % Basophils 0.7 % (0-2); % Eosinophils 3.5 % (0-6); % Immature Granulocytes 0.2 % (0-0.5); % Lymphocytes 20.5 % (20.5-51.1); % Neutrophils 61.1 % (42.2-75.2); Absolute Eosinophils 0.2 10^3/uL (0-0.7); Absolute Lymphocytes 1.2 10^3/uL (1.2-3.4); Absolute Monocytes 0.8 10^3/uL (0.1-0.6); Absolute Neutrophils 3.7 10^3/uL (1.4-6.5); Hematocrit 30.6 % (39.0-52.0); Hemoglobin 10.5 g/dL (13.0-18.0); Mean Corp Hgb Conc. 34.3 g/dL (33.0-37.0); Mean Corpuscular Hgb 33.3 pg (27.0-31.0); Mean Corpuscular Volume 97.1 fL (80.0-94.0); Mean Platelet Volume 12.4 fL (7.4-10.4); Nucleated Red Blood Cells % 0 % (-); Platelet Count 131 10^3/uL (130-400); Red Blood Cell Count 3.15 10^6/uL (4.70-6.10); Reticulocyte Count 1.4 % (0.4-2.8)
[2025-05-02 16:11] LABS: Blood Urea Nitrogen 69 mg/dl (9-20); Calcium 9.1 mg/dl (8.4-10.2); Carbon Dioxide 22 mmol/L (22-30); Chloride 106 mmol/L (98-107); Glucose 95 mg/dl (70-99); HDL Cholesterol 45 mg/dl; LDH 171 U/L (120-246); LDL Cholesterol, Calculated 50 mg/dl; Phosphorus 5.1 mg/dl (2.5-4.5); Potassium 5.8 mmol/L (3.5-5.1); Sodium 140 mmol/L (135-145); Total Cholesterol 133 mg/dl (50-199); Triglyceride 192 mg/dl (10-149); Very Low Density Lipoprotein 38 mg/dl (0-30); eGFR 17.71
[2025-05-02 16:15] LABS: Erythrocyte Sed Rate 25 mm/hour (0-20)
[2025-05-02 16:47] LABS: Ferritin 47.7 ng/ml (17.9-464.0)
[2025-05-02 17:18] LABS: Folate > 20.0 ng/ml (2.76-20); Vitamin B12 932 pg/ml (239-931)
[2025-05-03 08:58] LABS: Glycohemoglobin (HgbA1c) 5.6 % (4.0-5.6)
[2025-05-05 04:39] LABS: Beta-2-Microglobulin 7.3 mg/L (<=3.0)
[2025-05-05 04:54] LABS: Haptoglobin 124 mg/dL (30-200)
== END ==
LOC: HWLAB 12:04
PROVIDERS: ATTENDING PHYSICIAN Specialist; FAMILY PHYSICIAN Internal Medicine; REFERRING PHYSICIAN Nurse Practitioner Adult Health
DX: E11.9 Type 2 diabetes mellitus without complications (principal); E78.5 Hyperlipidemia, unspecified; N18.4 Chronic kidney disease, stage 4 (severe); E83.39 Other disorders of phosphorus metabolism; E87.20 Acidosis, unspecified; R80.9 Proteinuria, unspecified; D64.9 Anemia, unspecified; D63.1 Anemia in chronic kidney disease
CPT/HCPCS: 36415; 80048; 80061; 82232; 82607; 82728; 82746; 82784; 83010; 83036; 83521; 83615; 84100; 84155; 84165; 85025; 85045; 85652; 86334; 86880

== ENCOUNTER → 2025-06-19 08:06 | Outpatient (REF) | payer MEDICARE, OTHER, SELFPAY ==
[2025-06-19 10:04] LABS: Hematocrit 29.6 % (39.0-52.0); Hemoglobin 9.8 g/dL (13.0-18.0); Mean Corp Hgb Conc. 33.1 g/dL (33.0-37.0); Mean Corpuscular Volume 96.7 fL (80.0-94.0); Nucleated Red Blood Cells % 0 % (-); Platelet Count 115 10^3/uL (130-400); Red Cell Dist. Width 12.8 % (11.5-14.5)
[2025-06-19 10:15] LABS: Calcium 9.3 mg/dl (8.4-10.2)
== END ==
LOC: HWLAB 08:06
PROVIDERS: ATTENDING PHYSICIAN Internal Medicine Hematology & Oncology; FAMILY PHYSICIAN Internal Medicine; REFERRING PHYSICIAN Specialist
DX: E78.5 Hyperlipidemia, unspecified (principal); N18.4 Chronic kidney disease, stage 4 (severe); E83.39 Other disorders of phosphorus metabolism; E87.20 Acidosis, unspecified; R80.9 Proteinuria, unspecified; D64.9 Anemia, unspecified; D63.1 Anemia in chronic kidney disease
CPT/HCPCS: 36415; 83970; 85025

== ENCOUNTER → 2025-06-26 09:24 | Outpatient (REF) | payer MEDICARE, OTHER, SELFPAY ==
[2025-06-26 10:18] LABS: Hematocrit 31.6 % (39.0-52.0); Hemoglobin 10.6 g/dL (13.0-18.0); Mean Corp Hgb Conc. 33.5 g/dL (33.0-37.0); Mean Corpuscular Volume 94.6 fL (80.0-94.0); Nucleated Red Blood Cells % 0 % (-); Platelet Count 114 10^3/uL (130-400); Red Cell Dist. Width 12.9 % (11.5-14.5)
[2025-06-26 10:41] LABS: Blood Urea Nitrogen 72 mg/dl (9-20); Calcium 9.7 mg/dl (8.4-10.2); Carbon Dioxide 19 mmol/L (22-30); Chloride 106 mmol/L (98-107); Glucose 117 mg/dl (70-99); Potassium 5.1 mmol/L (3.5-5.1); Sodium 135 mmol/L (135-145); eGFR 15.96
== END ==
LOC: REG 09:24
PROVIDERS: ATTENDING PHYSICIAN Specialist; FAMILY PHYSICIAN Internal Medicine; REFERRING PHYSICIAN Internal Medicine Hematology & Oncology
DX: N18.4 Chronic kidney disease, stage 4 (severe) (principal); D63.1 Anemia in chronic kidney disease
CPT/HCPCS: 36415; 80048; 84100; 85025

== ENCOUNTER → 2025-07-02 11:00 | Outpatient (REF) | payer MEDICARE, OTHER, SELFPAY | LOC: HWRAD 11:00 | PROVIDERS: ATTENDING PHYSICIAN Internal Medicine Nephrology; FAMILY PHYSICIAN Nurse Practitioner Pediatrics; REFERRING PHYSICIAN Specialist | DX: N18.4 Chronic kidney disease, stage 4 (severe) (principal); I12.9 Hypertensive chronic kidney disease with stage 1 through stage 4 chronic kidney disease, or unspecified chronic kidney disease; E11.21 Type 2 diabetes mellitus with diabetic nephropathy; R80.9 Proteinuria, unspecified; D63.1 Anemia in chronic kidney disease | CPT/HCPCS: 76770 ==

== ENCOUNTER → 2025-07-13 08:55 | Outpatient (REF) | payer MEDICARE, OTHER, SELFPAY | LOC: RCS 08:55 | PROVIDERS: ATTENDING PHYSICIAN Internal Medicine Cardiovascular Disease; FAMILY PHYSICIAN Internal Medicine | DX: I35.1 Nonrheumatic aortic (valve) insufficiency (principal) | CPT/HCPCS: 93306 ==

== ENCOUNTER → 2025-07-23 07:52 | Outpatient (REF) | payer MEDICARE, OTHER, SELFPAY ==
[2025-07-23 10:59] LABS: Hematocrit 28.9 % (39.0-52.0); Hemoglobin 9.6 g/dL (13.0-18.0); Mean Corp Hgb Conc. 33.2 g/dL (33.0-37.0); Mean Corpuscular Volume 94.1 fL (80.0-94.0); Nucleated Red Blood Cells % 0 % (-); Platelet Count 112 10^3/uL (130-400); Red Cell Dist. Width 13.9 % (11.5-14.5)
[2025-07-23 11:01] LABS: Blood Urea Nitrogen 69 mg/dl (9-20); Calcium 9.3 mg/dl (8.4-10.2); Carbon Dioxide 23 mmol/L (22-30); Chloride 105 mmol/L (98-107); Glucose 106 mg/dl (70-99); Potassium 4.8 mmol/L (3.5-5.1); Sodium 137 mmol/L (135-145); eGFR 19.09
== END ==
LOC: HWLAB 07:52
PROVIDERS: ATTENDING PHYSICIAN Internal Medicine Hematology & Oncology; FAMILY PHYSICIAN Internal Medicine; REFERRING PHYSICIAN Specialist
DX: E78.5 Hyperlipidemia, unspecified (principal); N18.4 Chronic kidney disease, stage 4 (severe); I10 Essential (primary) hypertension; D64.9 Anemia, unspecified; D63.1 Anemia in chronic kidney disease
CPT/HCPCS: 36415; 80048; 85025

== ENCOUNTER → 2025-09-05 11:35 | Outpatient (REF) | payer MEDICARE, OTHER, SELFPAY ==
[2025-09-05 16:10] LABS: Blood Urea Nitrogen 65 mg/dl (9-20); Calcium 9.4 mg/dl (8.4-10.2); Carbon Dioxide 26 mmol/L (22-30); Chloride 101 mmol/L (98-107); Glucose 136 mg/dl (70-99); Potassium 5.8 mmol/L (3.5-5.1); Sodium 134 mmol/L (135-145); eGFR 16.50
== END ==
LOC: HWLAB 11:35
PROVIDERS: ATTENDING PHYSICIAN Specialist; FAMILY PHYSICIAN Internal Medicine
DX: E78.5 Hyperlipidemia, unspecified (principal); N18.4 Chronic kidney disease, stage 4 (severe); I10 Essential (primary) hypertension; D64.9 Anemia, unspecified
CPT/HCPCS: 36415; 80048

== ENCOUNTER → 2025-09-17 08:15 | Outpatient (REF) | payer MEDICARE, OTHER, SELFPAY ==
[2025-09-17 10:34] LABS: Blood Urea Nitrogen 72 mg/dl (9-20); Calcium 9.0 mg/dl (8.4-10.2); Carbon Dioxide 21 mmol/L (22-30); Chloride 104 mmol/L (98-107); Glucose 110 mg/dl (70-99); Potassium 4.9 mmol/L (3.5-5.1); Sodium 133 mmol/L (135-145); eGFR 15.44
== END ==
LOC: HWLAB 08:15
PROVIDERS: ATTENDING PHYSICIAN Specialist; FAMILY PHYSICIAN Internal Medicine
DX: N18.4 Chronic kidney disease, stage 4 (severe) (principal); I10 Essential (primary) hypertension
CPT/HCPCS: 36415; 80048; 83970; 84100

== ENCOUNTER → 2025-10-09 10:51 | Outpatient (REF) | payer MEDICARE, OTHER, SELFPAY ==
[2025-10-09 12:20] LABS: Blood Urea Nitrogen 64 mg/dl (9-20); Calcium 9.1 mg/dl (8.4-10.2); Carbon Dioxide 27 mmol/L (22-30); Chloride 102 mmol/L (98-107); Glucose 116 mg/dl (70-99); Potassium 5.2 mmol/L (3.5-5.1); Sodium 137 mmol/L (135-145); eGFR 16.50
== END ==
LOC: REG 10:51
PROVIDERS: ATTENDING PHYSICIAN Specialist; FAMILY PHYSICIAN Internal Medicine
DX: N18.4 Chronic kidney disease, stage 4 (severe) (principal); I10 Essential (primary) hypertension
CPT/HCPCS: 36415; 80048; 83970; 84100